=== PATIENT | male | born 1950 | race Caucasian/White ===

== ENCOUNTER 2019-11-08 09:24 | Emergency (ER) | payer BC ==
[2019-11-08] MEDS ORDERED: Lidocaine 1% (PF) 30 ML VIAL ONE (09:58)
== END 2019-11-08 10:25 | disposition home or self-care (01) ==
LOC: NAV ERS 09:24
DX: S61.212A Laceration without foreign body of right middle finger without damage to nail, initial encounter (principal); I10 Essential (primary) hypertension; E03.9 Hypothyroidism, unspecified; E78.5 Hyperlipidemia, unspecified; E78.00 Pure hypercholesterolemia, unspecified; F17.210 Nicotine dependence, cigarettes, uncomplicated; Z79.82 Long term (current) use of aspirin; Z79.899 Other long term (current) drug therapy; W26.8XXA Contact with other sharp object(s), not elsewhere classified, initial encounter
CPT/HCPCS: 12001; 99282; J2001

== ENCOUNTER 2019-11-15 12:27 | Emergency (ER) | payer BC | END 2019-11-15 13:25 | disposition home or self-care (01) | LOC: NAV ERS 12:27 | DX: S61.212D Laceration without foreign body of right middle finger without damage to nail, subsequent encounter (principal); F17.210 Nicotine dependence, cigarettes, uncomplicated; E03.9 Hypothyroidism, unspecified; E78.5 Hyperlipidemia, unspecified; E78.00 Pure hypercholesterolemia, unspecified; Z79.899 Other long term (current) drug therapy; Z79.82 Long term (current) use of aspirin; W45.8XXD Other foreign body or object entering through skin, subsequent encounter ==

== ENCOUNTER 2020-10-13 17:07 | Emergency (ER) | payer BC ==
[2020-10-13] MEDS ORDERED: predniSONE 20 MG TAB ONE (17:36)
== END 2020-10-13 17:42 | disposition home or self-care (01) ==
LOC: NAV ERS 17:07
DX: L23.7 Allergic contact dermatitis due to plants, except food (principal); E03.9 Hypothyroidism, unspecified; E78.5 Hyperlipidemia, unspecified; F17.210 Nicotine dependence, cigarettes, uncomplicated
CPT/HCPCS: 99282; J7512